=== PATIENT | female | born 1990 | race Caucasian/White ===

== ENCOUNTER 2021-12-13 03:28 | Outpatient (CLI) | payer BC, SELFPAY ==
[2021-12-13 08:26] LABS: HCT 45.3 % (36.0-46.0); HGB 14.9 g/dL (11.2-15.7); MCH 28.9 pg (27.0-33.0); MCHC 32.9 % (32.0-36.0); MCV 87.8 fL (80-95); MPV 10.4 fL (8.0-11.0); Platelet Count 243 10^3/uL (130-400); RBC 5.16 10^6/uL (3.93-5.22); RDW 12.2 % (11.7-14.6); RDW-SD 39.6 fL; WBC 5.92 10^3/uL (4.4-10.8)
[2021-12-13 08:41] LABS: Hemoglobin A1C 5.7 % (<5.7)
[2021-12-13 09:24] LABS: BUN 16 mg/dL (7-18); CREATININE 0.9 mg/dL (0.55-1.02); Calcium 9.2 mg/dL (8.5-10.1); Calculated LDL 127 mg/dL (<100); Chloride 105 mmol/L (98-107); Cholesterol 198 mg/dL (<200); Glucose 129 mg/dL (74-106); HDL Cholesterol 43 mg/dL (40-60); Potassium 4.5 mmol/L (3.5-5.1); Sodium 141 mmol/L (136-145); TSH (W/Ref FT4) 2.39 uIU/mL (0.36-3.74); Triglyceride 143 mg/dL (<150)
== END 2021-12-13 03:29 | disposition home or self-care (01) ==
LOC: LBO 03:28
PROVIDERS: PCP Nurse Practitioner; Visit Provider Nurse Practitioner
DX: I10 Essential (primary) hypertension (principal); R53.83 Other fatigue; Z13.220 Encounter for screening for lipoid disorders; Z13.1 Encounter for screening for diabetes mellitus
CPT/HCPCS: 36415; 80048; 80061; 85027; 83036; 84443

== ENCOUNTER 2021-12-28 10:20 | Outpatient (REF) | payer BC, SELFPAY ==
--- NOTE | 2021-12-28 09:40 | PAPFT_PTH ---
PATIENT: Phyllis Hansen LOC: [facility] U#:[id number] AGE/SX: 31/F ROOM: RE12/28/[address]: Valentine Navarro, PhD ROAD GRADER OPERATOR : [id number] BED: DIS: 12/28/2021 SPEC #: [id number] RECD: 12/28/21 13:07 STATUS: WES SAMUELS #: [id number] ROM: 12/28/21 09:[address]: Valentine Navarro DEPT: [facility] Cytology RECD BY: Yaa Shipley Tissues: 1 - CX/ENDOCX FOR PAP SMEARS Procedures: PAP THIN PREP/[facility] Screening HPV DNA PROBE Comments: [id number]
== END 2021-12-28 10:21 | disposition home or self-care (01) ==
LOC: LBN 10:20
PROVIDERS: PCP Nurse Practitioner; Visit Provider Nurse Practitioner
DX: Z12.4 Encounter for screening for malignant neoplasm of cervix (principal); Z11.51 Encounter for screening for human papillomavirus (HPV)
CPT/HCPCS: 88142; 87624